=== PATIENT | female | born 1995 | race Caucasian/White ===

== ENCOUNTER → 2022-05-09 12:00 | Outpatient (CLI) | payer OTHER, SELFPAY ==
[2022-05-09 13:07] LABS: Basophils # 0.1 K/mm3 (0-0.2); Basophils % 0.9 % (0.1-2.0); Eosinophils # 0.2 K/mm3 (0.0-0.4); Eosinophils % 1.6 % (0.1-12.0); Hematocrit 41.9 % (37.0-47.0); Hemoglobin 13.7 g/dL (12.2-16.2); Lymphocytes # 2.4 K/mm3 (0.7-4.5); Lymphocytes % 22.9 % (10-50); Mean Corpuscular HGB Conc 32.8 g/dL (31.8-35.4); Mean Corpuscular Hemoglobin 28.6 pg (27.0-31.2); Mean Corpuscular Volume 87.4 fl (81-99); Mean Platelet Volume 9.1 fl (7.4-10.4); Monocytes # 0.6 K/mm3 (0.1-1.0); Monocytes % 5.9 % (1.7-9.3); Neutrophils # 7.1 K/mm3 (1.8-7.8); Neutrophils % 68.8 % (37.0-80.0); Platelet Count 291 K/mm3 (142-424); Red Cell Distribution Width 15.4 % (11.5-17.5); White Blood Count 10.4 K/mm3 (4.8-10.8)
[2022-05-09 15:48] LABS: Hemoglobin A1C 6.4 % (4.0-6.0)
[2022-05-09 19:00] LABS: Thyroid Stimulating Hormone 2.94 uIU/mL (0.465-4.68)
[2022-05-09 19:22] LABS: Hemoglobin A1C 6.5 % (4.0-6.0)
[2022-05-16 04:08] LABS: D001-IgE D pteronyssinus <0.10 kU/L (Class 0); D002-IgE D farinae <0.10 kU/L (Class 0); E001-IgE Cat Dander <0.10 kU/L (Class 0); E005-IgE Dog Dander <0.10 kU/L (Class 0); E072-IgE Mouse Urine <0.10 kU/L (Class 0); G002-IgE Bermuda Grass <0.10 kU/L (Class 0); G006-IgE Timothy Grass <0.10 kU/L (Class 0); I006-IgE Cockroach, German <0.10 kU/L (Class 0); Immunoglobulin E, Total 11 IU/mL (6-495); M001-IgE Penicillium chrysogen <0.10 kU/L (Class 0); M002-IgE Cladosporium herbarum <0.10 kU/L (Class 0); M003-IgE Aspergillus fumigatus <0.10 kU/L (Class 0); M006-IgE Alternaria alternata <0.10 kU/L (Class 0); T001-IgE Maple/Box Elder <0.10 kU/L (Class 0); T003-IgE Common Silver Birch <0.10 kU/L (Class 0); T006-IgE Cedar, Mountain <0.10 kU/L (Class 0); T007-IgE Oak, White <0.10 kU/L (Class 0); T008-IgE Elm, American <0.10 kU/L (Class 0); T010-IgE Walnut <0.10 kU/L (Class 0); T011-IgE Maple Leaf Sycamore <0.10 kU/L (Class 0); T014-IgE Cottonwood <0.10 kU/L (Class 0); T015-IgE Ash, White <0.10 kU/L (Class 0); T022-IgE Pecan, Hickory <0.10 kU/L (Class 0); T070-IgE White Mulberry <0.10 kU/L (Class 0); W001-IgE Ragweed, Short <0.10 kU/L (Class 0); W011-IgE Thistle, Russian <0.10 kU/L (Class 0); W014-IgE Pigweed, Common <0.10 kU/L (Class 0); W018-IgE Sheep Sorrel <0.10 kU/L (Class 0)
== END ==
PROVIDERS: PCP Family Medicine; Visit Provider Internal Medicine Pulmonary Disease
DX: J45.909 Unspecified asthma, uncomplicated (principal); J30.9 Allergic rhinitis, unspecified; R73.03 Prediabetes
CPT/HCPCS: 36415; 82785; 83036; 84443; 85025; 86003

== ENCOUNTER → 2022-07-08 08:12 | Outpatient (CLI) | payer OTHER, SELFPAY | PROVIDERS: PCP Family Medicine; Visit Provider Internal Medicine Pulmonary Disease | DX: R06.09 Other forms of dyspnea (principal) | CPT/HCPCS: 94060; 94727; 94729 ==

== ENCOUNTER → 2023-02-09 23:19 | Outpatient (CLI) | payer OTHER, SELFPAY ==
[2023-02-09 20:05] LABS: Chloride 99 mmol/L (98-107)
[2023-02-09 20:06] LABS: Potassium 4.2 mmoL/L (3.5-5.1); Sodium 138 mmol/L (136-145)
[2023-02-09 20:08] LABS: Alanine Aminotransferase 35 U/L (12-78); Alkaline Phosphatase 69 U/L (38-126); Anion Gap 12.2 mEq/L (5-15); Aspartate Amino Transferase 37 U/L (14-36); Bilirubin,Total 0.2 mg/dl (0.2-1.3); Blood Urea Nitrogen 11 mg/dl (7-17); Carbon Dioxide 31 mmol/L (22.0-30.0); Estimated Glomerular Filt Rate 149 ml/min (>60); GFR (African American) 180 ML/MIN (>60)
[2023-02-09 20:09] LABS: Albumin Level 3.9 g/dl (3.5-5.0); Albumin/Globulin Ratio 1.4 (1.1-1.8); Calcium 8.5 mg/dl (8.4-10.2); Globulin 2.7 g/dL (1.3-3.2); Glucose 223 mg/dl (74-100); Total Protein,Serum 6.6 g/dl (6.3-8.2)
[2023-02-09 20:39] LABS: Thyroid Stimulating Hormone 1.73 uIU/mL (0.465-4.68)
[2023-02-09 21:25] LABS: Vitamin B12 > 1000 pg/mL (239-931)
[2023-02-21 20:08] LABS: 1,25 Dihydroxy Vitamin D 33 pg/mL (.); 1,25-Dihydroxy, Vitamin D-2 <10 pg/mL (.); 1,25-Dihydroxy, Vitamin D-3 24 pg/mL (.)
== END ==
PROVIDERS: PCP Family Medicine; Visit Provider Family Medicine
DX: R68.89 Other general symptoms and signs (principal); E66.01 Morbid (severe) obesity due to excess calories; Z68.45 Body mass index [BMI] 70 or greater, adult; Z79.899 Other long term (current) drug therapy
CPT/HCPCS: 80053; 82607; 82652; 84443

== ENCOUNTER → 2023-03-03 14:24 | Outpatient (CLI) | payer OTHER, SELFPAY ==
[2023-03-03 16:55] VITALS: BMI 75.4
== END ==
PROVIDERS: PCP Family Medicine; Visit Provider Family Medicine
DX: Z71.3 Dietary counseling and surveillance (principal); E11.9 Type 2 diabetes mellitus without complications; E66.9 Obesity, unspecified; Z71.2 Person consulting for explanation of examination or test findings; Z68.45 Body mass index [BMI] 70 or greater, adult
CPT/HCPCS: 97802

== ENCOUNTER → 2023-05-13 11:00 | Outpatient (CLI) | payer OTHER, SELFPAY ==
[2023-05-13 21:26] LABS: Hemoglobin A1C 5.3 % (4.0-6.0)
== END ==
PROVIDERS: PCP Family Medicine; Visit Provider Family Medicine
DX: E11.9 Type 2 diabetes mellitus without complications (principal); Z79.899 Other long term (current) drug therapy
CPT/HCPCS: 83036

== ENCOUNTER 2024-02-15 16:16 | Outpatient (CLI) | payer OTHER, SELFPAY ==
--- NOTE | 2024-02-15 16:23 | XR_ITS ---
PROCEDURE INFORMATION: Exam: XR Chest Exam date and time: 02/15/2024 4:39 PM Age: 28 years old Clinical indication: Cough; Additional info: Soboe, cough, ble edema TECHNIQUE: Imaging protocol: Radiologic exam of the chest. Views: 2 views. COMPARISON: No relevant prior studies available. FINDINGS: Lungs: Normal. Pleural spaces: Normal. No pleural effusion. No pneumothorax. Heart/Mediastinum: Normal. No cardiomegaly. Bones/joints: Unremarkable. IMPRESSION: No acute findings.
[2024-02-15 17:18] LABS: Basophils # 0.1 K/mm3 (0-0.2); Basophils % 0.6 % (0.1-2.0); Eosinophils # 0.2 K/mm3 (0.0-0.4); Eosinophils % 1.9 % (0.1-12.0); Hematocrit 37.8 % (37.0-47.0); Hemoglobin 14.3 g/dL (12.2-16.2); Lymphocytes # 2.3 K/mm3 (0.7-4.5); Mean Corpuscular HGB Conc 37.8 g/dL (31.8-35.4); Mean Corpuscular Hemoglobin 34.3 pg (27.0-31.2); Mean Corpuscular Volume 90.5 fl (81-99); Mean Platelet Volume 8.6 fl (7.4-10.4); Monocytes # 0.5 K/mm3 (0.1-1.0); Monocytes % 5.7 % (1.7-9.3); Neutrophils # 6.4 K/mm3 (1.8-7.8); Neutrophils % 67.8 % (37.0-80.0); Platelet Count 208 K/mm3 (142-424); Red Blood Count 4.18 M/mm3 (4.20-5.40); Red Cell Distribution Width 15.5 % (11.5-17.5); White Blood Count 9.4 K/mm3 (4.8-10.8)
[2024-02-15 17:48] LABS: Hemoglobin A1C 6.5 % (4.0-6.0)
[2024-02-15 18:55] LABS: Alanine Aminotransferase 42 U/L (12-78); Albumin Level 4.1 g/dl (3.5-5.0); Albumin/Globulin Ratio 1.5 (1.1-1.8); Alkaline Phosphatase 61 U/L (38-126); Aspartate Amino Transferase 55 U/L (14-36); Bilirubin,Total 0.6 mg/dl (0.2-1.3); Blood Urea Nitrogen 10 mg/dl (7-17); Calcium 9.3 mg/dl (8.4-10.2); Carbon Dioxide 26 mmol/L (22.0-30.0); Chloride 103 mmol/L (98-107); Estimated Glomerular Filt Rate 148 ml/min (>60); GFR (African American) 179 ML/MIN (>60); Globulin 2.8 g/dL (1.3-3.2); Glucose 170 mg/dl (74-100); Sodium 140 mmol/L (136-145); Total Protein,Serum 6.9 g/dl (6.3-8.2)
[2024-02-15 18:56] LABS: Anion Gap 15.7 mEq/L (5-15); Potassium 4.7 mmoL/L (3.5-5.1)
[2024-02-15 19:05] LABS: NT Pro Brain Natriuretic Pep. < 20.0 pg/mL (0-125)
== END 2024-02-15 23:59 | disposition home or self-care (01) ==
LOC: LAB 16:18
PROVIDERS: PCP Family Medicine; Visit Provider Nurse Practitioner
DX: R06.02 Shortness of breath (principal); R60.0 Localized edema; R05.9 Cough, unspecified
CPT/HCPCS: 36415; 71046; 80053; 83036; 83880; 85025

== ENCOUNTER 2025-06-23 11:10 | Outpatient (CLI) | payer OTHER, SELFPAY ==
--- OUTSIDE RECORDS SUMMARY | 2025-06-16 09:10 | XMS_ITS | Encounter Summary ---
Author Organization [facility] [address] Care Team Providers Care Computer Methods Analyst Name Role Phone Titus Charles MD Primary Care Provider [phone] Romain Portillo MD Unavailable [phone] Reason for Referral * (Routine) - Pending Review Specialty Diagnoses / Procedures Referred By Ted nick Referred To Contact Diagnoses Hidradenitis Procedures BETA SURGERY COMMUNICATION ORDER Dayna Min MD [address] [place] [address] [address] [place] [address] Phone: tel: fax: Referral ID Status Reason Start Date Expiration Date V isits Requested Visits Authorized [id number] Pending Review 06/16/2025 06/16/2026 1 1 * Consultation (Routine) - Authorization Not Needed Specialty Diagnoses / Procedures Referred By Ted nick Referred To Contact Diagnoses Hidradenitis Procedures CO OFFICE/OUTPATIENT NEW MODERATE MDM 45 MINUTES Dayna Min MD [address] [place] [address] [address] [place] [address] Phone: tel: fax: Referral ID Status Reason Start Date Expiration Date Visits Requested Visits Authorized [id number] Authorization Not Needed 06/16/2026 99 99 Question Answer Provider Options First Available Are you an oncology provider? No Is this for a skin lesion or rash referral? Skin Lesion Referral Is melanoma suspected? No Has a biopsy been done? Yes Is there a photo? No If this is an URGENT referral and the patient needs to be seen within the next 4 weeks, please use the On-Call finder and send a message to the provider electronic equipment repairmen. Your message will be answered within 24 hours business hours. Please include a photo. Non Urgent Reason for Visit * Reason Comments Cyst cyst on back right s arvind of neck Encounter Details Date Type Department Care Team (Late st Contact Info) Description 06/16/2025 10:10 AM EDT Office Visit SEP Gen Surgery [facility] [address] [place] [address] Dayna Min MD [address] [place] [address] Hidradenitis (Primary Dx) Social History Tobacco Use Types Packs/Day Years Used Date Smoking Tobacco: Every Day Cigarettes Smokeless Tobacco: Never Tobacco Cessation:Ready to Q uit: Not Asked; Counseling Given: Not Answered Alcohol Use Standard Drinks/Week Comments Yes 0 (1 standard drink = 0.6 oz pur e alcohol) rare Sexually Active Control Partners Comments Yes Other-see comments Male vasectomy Comments No Sex and Gender Information Value Date Recorded Sex Assigned at Not on file Legal Sex Female 10:19 PM EDT Gender Identity Not on file Sexual Orientation Not on file Occupation Industry Job Start Date Job End Date stay at home Not on file Not on file Not on heather e documented as of this encounter Last Filed Vital Signs Vital Sign Reading Time Taken Comments Blood Pressure 126/66 06/16/2025 10:08 AM EDT Pulse 100 06/16/2025 10:08 AM EDT Temperature 36.8 C (98.3 F) 06/16/2025 10:08 AM EDT Respiratory Rate 18 06/16/2025 10:0 8 AM EDT Oxygen Saturation - - Inhaled Oxygen Concentration - - Weight 201.1 kg (443 lb 6.4 oz) 025 10:08 AM EDT Height 160 cm (5' 3 ) 06/16/2025 10:08 AM EDT Body Mass Index 78.54 06/16/2025 10:08 AM EDT documented in this encounter Progress Notes * Dayna Min MD - 06/16/2025 10:10 AM EDTAssociated Problem(s): Hidradenitis Orders: AMB REFERRAL TO DERMATOLOGY BETA SURGERY COMMUNICATION ORDER * Dayna Min MD - 06/16/2025 10:10 AM EDT Subjective: Patient ID: Karma Haas is a 30 y.o. female. Chief Complaint Patient presents with Cyst cyst on back right side of neck Comes in with a posterior neck cyst that has tunneled and come to he surface and drained This has happened recurrently I had previously excised the left side and this healed well Patients past medical, family and social histories were reviewed and updated. There were no changesexcept as noted. Past Medical History[1] Surgical History[2] Family History[3] Social History Socioeconomic History Marital status: Spouse name: Not on file Number of children: 0 Years of education: Not on file Highest education level: Not on file Occupational History Occupation: stay at home Tobacco Use Smoking status: Every Day Current packs/day: 0.25 Types: Cigarettes Smokeless tobacco: Never Vaping Use Vaping status: Never Used Substance and Sexual Activity Alcohol use: Yes Alcohol/week: 0.0 oz Comment: rare Drug use: No Sexual activity: Yes Partners: Male control/protection: Other-see comments Comment: vasectomy Other Topics Concern Not on file Social History Narrative Not on file Social Drivers of Health Financial Resource Strain: Not on file Food Insecurity: Not on file Transportation Needs: Not on file Physical Activity: Not on file Stress: Not on file Social Connections: Not on file Intimate Partner Violence: Not on file Housing Stability: Not on file Review of Systems Constitutional: Positive for fever. Negative for appetite change, chills, diaphoresis, fatigue and unexpected weight change. HENT: Negative for ear pain, hearing loss, nosebleeds, sore throat and voice change. Eyes: Negative for photophobia, pain and visual disturbance. Respiratory: Negative for cough, choking, chest tightness, shortness of breath and wheezing. Cardiovascular: Negative for chest pain, palpitations and leg swelling. Gastrointestinal: Negative for abdominal distention, abdominal pain, anal bleeding, blood in stool,constipation, diarrhea, nausea, rectal pain and vomiting. Genitourinary: Negative for difficulty urinating, dysuria, flank pain, frequency and vaginal discharge. Musculoskeletal: Positive for neck pain and neck stiffness. Negative for arthralgias, back pain, gait problem, joint swelling and myalgias. Skin: Positive for color change and wound. Negative for rash. Neurological: Negative for dizziness, seizures, speech difficulty, weakness, light-headedness, numbness and headaches. Hematological: Negative for adenopathy. Does not bruise/bleed easily. Psychiatric/Behavioral: Negative for confusion, decreased concentration and hallucinations. The patient is not nervous/anxious. Objective: Vitals: 06/16/25 1008 BP: 126/66 Pulse: 100 Resp: 18 Temp: 98.3 ??F (36.8 ??C) TempSrc: Forehead Weight: (!) 443 lb 6.4 oz (201.1 kg) Height: 5' 3 (1.6 m) Body mass index is 78.54 kg/m??. Physical Exam Vitals and nursing note reviewed. Constitutional: Appearance: Normal appearance. She is obese. HENT: Head: Normocephalic and atraumatic. Mouth/Throat: Mouth: Mucous membranes are moist. Pharynx: Oropharynx is clear. Eyes: Extraocular Movements: Extraocular movements intact. Pupils: Pupils are equal, round, and reactive to light. Cardiovascular: Rate and Rhythm: Normal rate. Pulses: Normal pulses. Pulmonary: Effort: Pulmonary effort is normal. No respiratory distress. Abdominal: General: There is no distension. Palpations: Abdomen is soft. Tenderness: There is no abdominal tenderness. Musculoskeletal: General: No swelling or tenderness. Cervical back: Normal range of motion and neck supple. Skin: General: Skin is warm and dry. Coloration: Skin is not jaundiced. Comments: Posterior neck hidradenitis due to deep skin fold this is on the right side of the neck. No active infection. Some thinning skin and tunneling noted Neurological: General: No focal deficit present. Mental Status: She is alert and oriented to person, place, and time. Psychiatric: Mood and Affect: Mood normal. Behavior: Behavior normal. Assessment & Plan Hidradenitis Orders: AMB REFERRAL TO DERMATOLOGY BETA SURGERY COMMUNICATION ORDER Recurrent HS of posterior neck I have offered excision Discussed that she needs some longer term maintenance so derm referral placed Discussed need for weight loss No follow-ups on file. [1] Past Medical History: Diagnosis Date Allergic rhinitis Anemia Anesthesia complication difficult to wake up, difficult intubation Angina pectoris Asthma CHF (congestive heart failure) ([facility]) 05/10/2024 current workup for CHF Chronic headache Collapsed lung Dx at [facility], pt unsure of which lung COPD (chronic obstructive pulmonary disease) ([facility]) Diabetes mellitus ([facility]) Difficult intubation Elevated blood sugar Esophageal reflux High cholesterol Hypoglycemic syndrome Ingrown toenail PCOS (polycystic ovarian syndrome) 2018 Shortness of breath Sleep apnea no cpap, uses O2 at night and prn Splenomegaly [2] Past Surgical History: Procedure Laterality Date DILATION AND CURETTAGE OF UTERUS hysteroscopy x2 2016, 2020 TONSILLECTOMY AND ADENOIDECTOMY 1999 UPPER GASTROINTESTINAL ENDOSCOPY 2009 WISDOM TOOTH EXTRACTION WRIST ARTHROSCOPY 2011 [3] Family History Problem Relation Age of Onset Breast Cancer Mother 46 Bilateral. Unsure of age. Anemia Mother Brain Cancer Mother 16 [employer] at age 16-remission Other (melanoma) Father after age 35 Asthma Father Asthma Sister Cancer Sister skin Heart Disease Maternal Grandmother 52 [place] Diabetes Maternal Grandmother Type II High Blood Pressure Maternal Grandmother Thyroid Disease Maternal Grandmother hypothyroid Sleep Apnea Maternal Grandmother Migraines Maternal Grandmother Uterine Cancer Paternal Grandmother 66 Asthma Paternal Grandmother Heart Abnormality Paternal Grandmother High Blood Pressure Paternal Grandmother Irritable Bowel Syndrome Paternal Grandmother Cancer Paternal Grandmother skin. Seizures Paternal Grandmother Migraines Paternal Grandmother Anesth Problems Neg Hx documented in this encounter Plan of Treatment Upcoming Encounters Date Type Department Care Team (Latest Contact Info) Description 06/27/2025 1:30 PM EST Appointment EDG PRE-ADMIT TESTING [facility] [place] [address] 07/06/2025 2:30 PM EST Hospital Encounter [facility] [address] [place] [address] Dayna Min MD [address] [facility] [address] [place] [address] 07/06/2025 2:30 PM EST - 07/06/2025 3:38 PM EST Surgery [facility] [address] [place] [address] Dayna Min MD [address] [place] [address] EXCISION, MASS, NECK Scheduled Procedures Name Priority Associated Diagnoses Date/Ti pa EXCISION, MASS, NECK Hidradenitis 07/06/2025 2:30 PM EST Scheduled Referrals Name Type Priority Associated Diagnoses Order Schedule AMB REFERRAL TO DERMATOLOGY Outpatient Referral Routine Hidradenitis Ordered: 06/16/2025 documented as of this encounter Visit Diagnoses Diagnosis Hidradenitis- Primary Hidradenitis- Primary Hidradenitis documented in this encounter Orders Nursing Count Last Ordered Date First Orde red Date BETA SURGERY COMMUNICATION ORDER 1 06/16/20 25 documented in this encounter Care Teams Computer Methods Analyst Relationship Specialty Start Date End Date Titus Charles MD PCP - General Family Medicine 11/14/14 Romain Portillo MD [address] [facility] [place] [address] Internal Medicine-Cardiovascular Disease 07/15/24 documented as of this encounter
[2025-06-23 19:40] LABS: Hematocrit 42.3 % (37.0-47.0); Hemoglobin 13.5 g/dL (12.2-16.2); Immature Granulocytes % 0.3 %; Mean Corpuscular HGB Conc 31.9 g/dL (31.8-35.4); Mean Corpuscular Hemoglobin 28.7 pg (27.0-31.2); Mean Corpuscular Volume 89.8 fl (81-99); Nucleated Red Blood Cells % 0 %; Platelet Count 226 K/mm3 (142-424); Red Blood Count 4.71 M/mm3 (4.20-5.40); Red Cell Distribution Width-SD 48.2 fL; White Blood Count 8.9 K/mm3 (4.8-10.8)
[2025-06-23 20:03] LABS: Alanine Aminotransferase 72 U/L (12-78); Albumin Level 4.1 g/dl (3.5-5.0); Albumin/Globulin Ratio 1.4 (1.1-1.8); Alkaline Phosphatase 87 U/L (38-126); Anion Gap 9.3 mEq/L (5-15); Aspartate Amino Transferase 49 U/L (14-36); Bilirubin,Total 0.5 mg/dl (0.2-1.3); Blood Urea Nitrogen 8 mg/dl (7-17); Calcium 9.3 mg/dl (8.4-10.2); Carbon Dioxide 28 mmol/L (22.0-30.0); Chloride 102 mmol/L (98-107); Cholesterol 174 mg/dl (140-200); Creatinine,Serum 0.60 mg/dl (0.52-1.04); Estimated Glomerular Filt Rate 118 ml/min (>60); GFR (African American) 143 ML/MIN (>60); Globulin 3.0 g/dL (1.3-3.2); Glucose 251 mg/dl (74-100); HDL Cholesterol 30 mg/dl (40-60); Iron 72 ug/dL (37-170); Potassium 4.3 mmoL/L (3.5-5.1); Sodium 135 mmol/L (136-145); Total Protein,Serum 7.1 g/dl (6.3-8.2); Triglycerides 308 mg/dl (30-150)
[2025-06-23 20:34] LABS: Thyroid Stimulating Hormone 0.98 uIU/mL (0.465-4.68)
[2025-06-23 22:03] LABS: Hepatitis C Ab Qual. W/ RFX NEGATIVE (Negative)
--- OUTSIDE RECORDS SUMMARY | 2025-06-26 11:24 | XMS_ITS | Encounter Summary ---
Author Organization [facility] [place] [address] Care Team Providers Care Eyeglass Maker Name Role Phone Titus Charles MD Primary Care Provider [phone] Romain Portillo MD Unavailable [phone] Reason for Visit * Reason Onset Date Comments Other 06/19/2025 FYI Encounter Details Date Type Department Care Team (Late st Contact Info) Description 06/19/2025 Telephone SEP Gen Surg [facility] [address] [facility] [address] [place] [address] Luann Woody MA Other (FYI) Social History Tobacco Use Types Packs/Day Years Used Date Smoking Tobacco: Every Day Cigarettes Smokeless Tobacco: Never Alcohol Use Standard Drinks/Week Comments Yes 0 [...] heather e documented as of this encounter Miscellaneous Notes * Telephone Encounter - Anabela Barrios, Clerical Staff - 06/20/2025 3:26 PM EST I called and left a VM that Dr. Min will look at the day of surgery. * Telephone Encounter - Dayna Min MD - 06/20/2025 3:16 PM EST I can look at it and assess the day of surgery * Telephone Encounter - Anabela Barrios, Clerical Staff - 06/20/2025 10:38 AM EST Pt is asking about if you will be able to remove the cyst that came back * Telephone Encounter - Luann Woody MA - 06/19/2025 2:57 PM EST Pt called stating that a cyst came back on the left side of her neck, right above the previous cystthat has been removed. Pt states that it did bust and drain a little bit, but has not gone down in size. documented in this encounter Plan of Treatment Upcoming Encounters Date Type Department Care Team (Latest Contact Info) Description 06/27/2025 1:30 PM EST Appointment EDG PRE-ADMIT TESTING [facility] [place] [address] 07/06/2025 2:30 PM EST Hospital Encounter [facility] [address] [place] [address] Dayna Min MD [address] [place] [address] [address] [place] [address] 07/06/2025 2:30 PM EST - 07/06/2025 3:38 PM EST Surgery [facility] [address] [place] [id number] Dayna Min MD [address] [place] [address] [address] [place] [address] EXCISION, MASS, NECK Scheduled Procedures Name Priority Associated Diagnoses Date/Ti me EXCISION, MASS, NECK Hidradenitis 07/06/2025 2:30 PM EST documented as of this encounter Visit Diagnoses Not on filedocumented in this encounter Care Teams Eyeglass Maker Relationship Specialty Start Date End Date Titus Charles MD PCP - General Family Medicine 11/14/14 Romain Portillo MD [address] [place] [address] Internal Medicine-Cardiovascular Disease 07/15/24 documented as of this encounter
--- OUTSIDE RECORDS SUMMARY | 2025-06-26 11:24 | XMS_ITS | Data Portability ---
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 Not Available prednison e 20 mg tablet 02/23 completed Not Available Not Available Not Available medroxypr ogesteron e 5 mg tablet 02/23 completed Not Available Not Available Not Available rizatript an 10 mg tablet 02/23 completed Not Available Not Available Not Available sertralin e 100 mg tablet TAKE 2 TABLETS BY MOUTH ONCE DAILY 04/21 completed Not Available Not Available Not Available metformin 850 mg tablet 03/08 completed Not Available Not Available Not Available acetazola mide 250 mg tablet 04/21 completed Not Available Not Available Not Available clindamyc in HCl 150 mg capsule 02/23 completed Not Available Not Available Not Available Flonase 50 mcg/actua tion nasal spray,william pension inhale 1 spray (50 mcg) in each nostril by intranas al route once daily for 7 days 11/21 completed Flonase 50 mcg/actu ation nasal spray,beasley spension ;Prescri be Status: Prescrib ed on: 03/04/20 13 11:16AM; Disconti nued Status: Disconti nued on: 11/22/19 16 4:38PM;U ser: stroopr; Indicati on: Allergic Rhinitis - (.[id number]);Phar macyVeri fied: 03/04/20 13 11:16AM Not Available Not Available Not Available topiramat e 25 mg tablet TAKE 1 TABLET BY MOUTH TWICE DAILY active Not Available Not Available No t Available fexofenad ine 180 mg tablet TAKE 1 TABLET BY MOUTH EVERY 24 HOURS 04/21 completed Not Available Not Available Not Available prochlorp erazine maleate 10 mg tablet TAKE 1 TABLET BY MOUTH EVERY 8 HOURS NEEDED 12/13 completed Not Available Not Available Not Available ciproflox acin 500 mg tablet TAKE 1 TABLET BY MOUTH TWICE DAILY FOR 3 DAYS 03/17 completed Not Available Not Available Not Available sulfameth oxazole 800 mg-trimet hoprim 160 mg tablet TAKE 1 TABLET BY MOUTH TWICE DAILY FOR 7 DAYS active Not Available Not Available No t Available tramadol 50 mg tablet TAKE 1 TABLET BY MOUTH EVERY 6 HOURS NEEDED FOR PAIN active Not Available Not Available No t Available spironola ctone 25 mg tablet active Not Available Not Available No t Available ketorolac 10 mg tablet TAKE 1 TABLET BY MOUTH THREE TIMES DAILY NEEDED FOR PAIN active Not Available Not Available No t Available oxycodone -acetamin ophen 5 mg-325 mg tablet TAKE 1 TABLET BY MOUTH EVERY 4 TO 6 HOURS NEEDED FOR PAIN 08/03 completed Not Available Not Available Not Available potassium chloride ER 20 mEq tablet,ex tended release(p art/cryst ) TAKE 1 BY MOUTH ONCE DAILY 04/21 completed Not Available Not Available Not Available famotidin e 20 mg tablet Take 1 tablet as needed by oral route. 04/21 completed Not Available Not Available Not Available estradiol 1 mg tablet 02/23 completed Not Available Not Available Not Available amoxicill in 250 mg/5 mL oral suspensio n take 10 millilit ers (500 mg) by oral route every 12 hours for 10 days 04/17 completed amoxicil antonia 250 mg/5 mL oral suspensi on for reconsti tution;R ecorded Status: Recorded on: 06/14/20 09 3:35PM;D iscontin ued Status: Disconti nued on: 04/17/20 10 3:19PM;U ser: keefk;Es t. Completi on: 06/24/20 09;Print ed: 06/14/20 09 Not Available Not Available Not Available OneTouch Ultra Test strips active Not Available Not Available Not Available benzonata te 100 mg capsule take 1 capsule (100 mg) by oral route 3 times per day 09/30 completed Not Available Not Available Not Available cyanocoba nikki (vit B-12) 1,000 mcg/mL injection solution INJECT 1 ML (CC) INTRAMUS CULARLY EVERY TWO WEEKS active Not Available Not Available No t Available Claritin 5 mg/5 mL oral solution 1 prn 10/04 completed Claritin 5 mg/5 mL oral solution ;Recorde d Status: Recorded on: 05/20/20 08 10:04PM; Disconti nued Status: Disconti nued on: 10/04/19 09 12:33PM; User: angie Not Available Not Available Not Available oseltamiv ir 75 mg capsule 03/08 completed Not Available Not Available Not Available ropinirol e 0.5 mg tablet Take 1 tablet every day by oral route at bedtime. 04/21 completed Not Available Not Available Not Available nystatin 100,000 unit/gram topical cream 04/21 completed Not Available Not Available Not Available ranitidin e 150 mg tablet TAKE ONE TABLET BY MOUTH TWICE DAILY for 30 days 02/23 completed Not Available Not Available Not Available halobetas ol propionat e 0.05 % topical ointment Apply to affected area on lower back BID -TID 02/23 completed Not Available Not Available Not Available promethaz ine 25 mg tablet TAKE 1 TABLET BY MOUTH THREE TIMES DAILY NEEDED FOR NAUSEA AND VOMITING 04/21 completed Not Available Not Available Not Available Syringe 3cc 22 gauge x 3/4 use twice monthly with b12 injectio ns 09/23 completed Syringe 3cc/22Gx 3/4 3 mL 22 gauge x 3/4 miscella neous syringe; Recorded Status: Recorded on: 12/28/19 14 12:22PM; User: [email or web address];Estefany t. Completi on: 09/23/19 15;Indic ation: Vitamin B12 Deficien cy - (266.9); Printed: 02/04/20 14 Not Available Not Available Not Available Advair Diskus 250 mcg-50 mcg/dose powder for inhalatio n 03/08 completed Not Available Not Available Not Available BD Luer-Frandy Syringe 3 mL 25 gauge x 1 02/23 completed Not Available Not Available Not Available diclofena c potassium 50 mg tablet Take 1 tablet twice a day by oral route. 11/17 completed Not Available Not Available Not Available Selsun Blue 1 % shampoo use as directed daily 09/23 completed Replaced /Retired Drug 1 % topical shampoo; Recorded Status: Recorded on: 10/26/19 09 4:56PM;D iscontin ued Status: Disconti nued on: 09/23/19 11 2:15PM;U ser: gillisa; Printed: 10/26/19 09 Not Available Not Available Not Available omeprazol e 20 mg capsule,d elayed release take 1 capsule by oral route once 07/16 completed omeprazo le 20 mg oral capsule, delayed release( /EC);R ecorded Status: Recorded on: 02/18/20 12 11:14AM; Disconti nued Status: Disconti nued on: 07/16/20 12 11:17AM; User: [email or web address]; Est. Completi on: 06/17/20 12 Not Available Not Available Not Available diclofena c sodium 75 mg tablet,de layed release Take 1 tablet twice a day by oral route. 09/30 completed Not Available Not Available Not Available monteluka st 10 mg tablet 02/23 completed Not Available Not Available Not Available hydroxyzi ne HCl 25 mg tablet TAKE 1/2 (ONE-SYLVIE F) TABLET BY MOUTH ONCE DAILY NEEDED FOR ANXIETY AND THEN TAKE 1 TABLET AT NIGHT FOR SLEEP NEEDED active Not Available Not Available No t Available ranitidin e 150 mg capsule 03/08 completed Not Available Not Available Not Available amoxicill in 400 mg/5 mL oral suspensio n take 13 millilit ers by oral route 2 times a day for 10 days 10/04 completed amoxicil antonia 400 mg/5 mL oral suspensi on for reconsti tution;R ecorded Status: Recorded on: 07/14/20 08 4:39PM;D iscontin ued Status: Disconti nued on: 10/04/19 09 12:33PM; User: Nicki delarosa Completsuly on: 07/24/20 08;Indic ation: Acute Bacteria l Sinusiti s - (4619 );Prin geo: 07/14/20 08 Not Available Not Available Not Available furosemid e 20 mg tablet TAKE 1/2 (ONE-SYLVIE F) TABLET BY MOUTH EVERY 12 HOURS FOR 3 DAYS 12/19 completed Not Available Not Available Not Available alprazola m 2 mg tablet 09/23 completed Not Available Not Available Not Available gabapenti n 100 mg capsule Take 1 capsule every day by oral route at bedtime. 01/09 completed Not Available Not Available Not Available albuterol 90 mcg/actua tion aerosol inhaler Take as Directed 10/04 completed albutero l 90 mcg/actu ation inhalati on aerosol; Recorded Status: Recorded on: 05/20/20 08 10:03PM; Disconti nued Status: Disconti nued on: 10/04/19 09 12:33PM; User: anthony Not Available Not Available Not Available ergocalci ferol (vitamin D2) 1,250 mcg (50,000 unit) capsule TAKE 1 CAPSULE BY MOUTH ONCE A WEEK 04/21 completed Not Available Not Available Not Available Prometheg an 25 mg rectal supposito ry 12/19 completed Not Available Not Available Not Available epinephri ne 0.3 mg/0.3 mL injection , auto-inje ctor 04/21 completed Not Available Not Available Not Available Ativan 0.5 mg tablet Take 1 tablet every day by oral route as needed. 04/21 completed Not Available Not Available Not Available methylpre dnisolone 4 mg tablets in a dose pack 02/23 completed Not Available Not Available Not Available albuterol sulfate HFA 90 mcg/actua tion aerosol inhaler INHALE 2 PUFFS BY MOUTH EVERY 6 HOURS NEEDED FOR SHORTNES S OF BREATH AND FOR WHEEZING active Not Available Not Available No t Available ketoconaz ole 2 % topical cream APPLY TO THE AFFECTED AREA(S) between breasts BY TOPICAL ROUTE 2-3 DAILY 02/23 completed Not Available Not Available Not Available hydroxyzi ne HCl 10 mg tablet 03/08 completed Not Available Not Available Not Available cefdinir 300 mg capsule TAKE 1 CAPSULE BY MOUTH TWICE DAILY FOR 10 DAYS UNTIL GONE 04/29 completed Not Available Not Available Not Available topiramat e 100 mg tablet 02/23 completed Not Available Not Available Not Available sertralin e 50 mg tablet 12/13 completed Not Available Not Available Not Available medroxypr ogesteron e 150 mg/mL intramusc ular suspensio n Inject 1 mL every 12 weeks 03/08 completed Not Available Not Available Not Available dicyclomi ne 10 mg capsule 02/23 completed Not Available Not Available Not Available Hibiclens 4 % topical liquid wash with liquid once daily 02/23 completed Not Available Not Available Not Available Augmentin 500 mg-125 mg tablet take 1 tablet by oral route every 12 hours for 10 days 08/27 completed Augmenti n 500-125 mg oral tablet;R ecorded Status: Recorded on: 07/03/20 10 4:29PM;D iscontin ued Status: Disconti nued on: 08/27/19 11 9:57AM;U ser: gillisa; Est. Completi on: 07/13/20 10;Indic ation: Acute Bacteria l Sinusiti s - ();Prin geo: 07/03/20 10 Not Available Not Available Not Available ipratropi um bromide 21 mcg (0.03 %) nasal spray 02/23 completed Not Available Not Available Not Available loratadin e 10 mg tablet take 1 tablet (10 mg) by oral route once daily for 30 days 03/08 completed Not Available Not Available Not Available clindamyc in phosphate 1 % topical solution APPLY A THIN LAYER TO THE AFFECTED AREA(S) BY TOPICAL ROUTE 2 TIMES PER DAY 02/23 completed Not Available Not Available Not Available oxycodone 5 mg tablet TAKE 1 TO 2 TABLETS BY MOUTH THREE TIMES DAILY NEEDED FOR PAIN 08/03 completed Not Available Not Available Not Available hydroxyzi ne pamoate 25 mg capsule TAKE 1 CAPSULE BY MOUTH AT NIGHT NEEDED FOR SLEEP 04/21 completed Not Available Not Available Not Available cholecalc iferol (vitamin D3) 25 mcg (1,000 unit) capsule TAKE 1 CAPSULE BY MOUTH ONCE DAILY active Not Available Not Available No t Available Depo-Prov era 150 mg/mL intramusc ular syringe Inject 1 mL every 3 months by intramus cular route. 09/30 completed Not Available Not Available Not Available Mucinex 600 mg tablet, extended release take 1 - 2 tablets by oral route every 12 hours as needed for 10 days 09/30 completed Mucinex 600 mg oral tablet extended release 12hr;Rec orded Status: Recorded on: 11/08/19 11 5:40PM;D iscontin ued Status: Disconti nued on: 09/30/19 12 5:00PM;U ser: [email or web address];Es t. Completi on: 11/18/19 11;Indic ation: Cough - (16.7862 00) Not Available Not Available Not Available azithromy ramírez 500 mg tablet TAKE 1 TABLET BY MOUTH ONCE DAILY FOR 3 DAYS active Not Available Not Available No t Available guaifenes in 400 mg tablet take 2 tablets by oral route 3 times a day for 7 days 09/23 completed guaifene sin 400 mg oral tablet;R ecorded Status: Recorded on: 08/27/19 11 10:13AM; Disconti nued Status: Disconti nued on: 09/23/19 11 2:15PM;U ser: keefk;Es t. Completi on: 09/03/19 11;Indic ation: Cough - (16.7862 00);Prin geo: 08/27/19 11 Not Available Not Available Not Available Pain Reliever (acetamin ophen) 500 mg tablet 02/23 completed Not Available Not Available Not Available topiramat e 50 mg tablet 02/23 completed Not Available Not Available Not Available nitrofura ntoin monohydra te/macroc rystals 100 mg capsule Take 1 capsule twice a day by oral route for 7 days. 03/08 completed Not Available Not Available Not Available OneTouch UltraSoft Lancets active Not Available Not Available Not Available FIRST-Saba thwash BLM 200 mg-25 mg-400 mg-40mg/3 0mL 50cc/170 cc/200cc tid prn swish and spit 11/23 completed magic mouth wash lidocain e/benadr yl/nysta tin;Dino rded Status: Recorded on: 11/14/19 16 12:52PM; User: anthony;Estefany nick. Completi on: 11/24/19 16;Indic ation: ulcers - (-5) Not Available Not Available Not Available Flovent HFA 110 mcg/actua tion aerosol inhaler inhale 1 puff (110 mcg) by inhalati on route 2 times per day for 30 days 09/30 completed Flovent HFA 110 mcg/actu ation inhalati on HFA aerosol inhaler; Recorded Status: Recorded on: 11/08/19 11 5:40PM;D iscontin ued Status: Disconti nued on: 09/30/19 12 5:00PM;U ser: [email or web address];Es t. Completi on: 02/06/20 11;Indic ation: Asthma Preventi on - (08.4939 05) Not Available Not Available Not Available Mimyx topical cream apply to affected area(s) by topical route 3 times a day 05/23 completed Mimyx Topical Cream;Re corded Status: Recorded on: 10/04/19 09 12:21PM; Disconti nued Status: Disconti nued on: 05/23/20 09 10:27AM; User: [email or web address];Pr inted: 10/04/19 09 Not Available Not Available Not Available chlorhexi dine gluconate 0.12 % mouthwash SWISH AND SPIT 15ML BY MOUTH TWICE DAILY DIRECTED 08/03 completed Not Available Not Available Not Available Amoxil one tid 12/20 completed amoxil 500 mg.;Dino rded Status: Recorded on: 10/04/19 13 11:11AM; Disconti nued Status: Disconti nued on: 12/21/19 13 5:03PM;U ser: mirza Est. Completi on: 10/14/19 13;Indic ation: phjar - (-5) Not Available Not Available Not Available omeprazol e 2 po bid 06/10 completed omeperaz ole 20 mg;comme nt: pt dose adjusted ;Recorde d Status: Recorded on: 04/01/20 10 12:02PM; Disconti nued Status: Disconti nued on: 06/10/20 10 9:47AM;U ser: lisa Est. Completi on: 05/31/20 10;Indic ation: gerd - (-5) Not Available Not Available Not Available Atarax one tid 07/16 completed atarax 25 mg.;Dino rded Status: Recorded on: 06/06/20 12 9:11PM;D iscontin ued Status: Disconti nued on: 07/16/20 12 11:17AM; User: mirza EstJessica Singh on: 06/16/20 12;Indic ation: panic - (-5) Not Available Not Available Not Available prednison e increasi ng/decre asing dosage schedule 02/16 completed predison e 5 mg.;Dino rded Status: Recorded on: 10/24/19 12 7:43AM;D iscontin ued Status: Disconti nued on: 02/17/20 12 8:58AM;U ser: [email or web address]; Est. Completi on: 10/30/19 12;Indic ation: asthma - (-5) Not Available Not Available Not Available Keflex 1 bid 05/23 completed keflex 500mg;Re corded Status: Recorded on: 05/02/20 09 1:40PM;D iscontin ued Status: Disconti nued on: 05/23/20 09 10:27AM; User: [email or web address] ryh;Est. Completi on: 05/16/20 09;Indic ation: - (-5);Ofelia nted: 05/02/20 09 Not Available Not Available Not Available Flovent HFA as needed 09/23 completed Flovent HFA Inhalati on;Recor ded Status: Recorded on: 08/27/19 11 9:57AM;D iscontin ued Status: Disconti nued on: 09/23/19 11 2:15PM;U ser: [email or web address] Not Available Not Available Not Available aripipraz ole 2 mg tablet TAKE 1 TABLET BY MOUTH ONCE DAILY IN THE MORNING 04/21 completed Not Available Not Available Not Available hydrochlo rothiazid e 12.5 mg tablet take 1 tablet (12.5 mg) by oral route once daily for 30 days 11/21 completed hydrochl orothiaz arvind 12.5 mg oral tablet;P rescribe Status: Prescrib ed on: 06/12/20 14 3:47PM;D iscontin ued Status: Disconti nued on: 11/22/19 16 4:38PM;U ser: neuss;Es t. Completi on: 12/10/19 15;Pharm acyVerif ied: 06/12/20 14 3:47PM Not Available Not Available Not Available Symbicort 80 mcg-4.5 mcg/actua tion HFA aerosol inhaler 12/13 completed Not Available Not Available Not Available FeroSul 325 mg (65 mg iron) tablet TAKE 1 TABLET BY MOUTH TWICE DAILY active Not Available Not Available No t Available Xyzal 5 mg tablet take 1 tablet (5 mg) by oral route once daily in the evening for 10 days 12/20 completed Xyzal 5 mg oral tablet;R ecorded Status: Recorded on: 10/01/19 13 2:38PM;D iscontin ued Status: Disconti nued on: 12/21/19 13 5:03PM;U ser: [email or web address]; Est. Completi on: 10/11/19 13;Print ed: 10/01/19 13 Not Available Not Available Not Available Xyzal one ddaily 12/20 completed xyzal 5 mg.;Dino rded Status: Recorded on: 10/04/19 13 11:11AM; Disconti nued Status: Disconti nued on: 12/21/19 13 5:03PM;U ser: [email or web address]; Est. Completi on: 10/14/19 13;Indic ation: allergy - (-5) Not Available Not Available Not Available BD Allergy Syringe 1 mL 28 gauge 02/23 completed Not Available Not Available Not Available Vitamin D 2,000 unit capsule take 1 capsule by oral route daily 03/02 completed Replaced /Retired Drug 2,000 unit oral capsule; Recorded Status: Recorded on: 02/24/20 12 8:55AM;D iscontin ued Status: Disconti nued on: 03/02/20 13 1:51PM;U ser: neuss;In dication : Vitamin D Deficien cy - (2689 ) Not Available Not Available Not Available Aerochamb er Plus Flow-Vu 12/13 completed Not Available Not Available Not Available cyanocoba nikki (vit B-12) 1,000 mcg/mL injection kit Inject 1 mL every month by subcutan eous route. 04/21 completed pt gives her own injectio n Not Available Not Available Not Available potassium chloride ER 20 mEq tablet,ex tended release TAKE 1 TABLET BY MOUTH ONCE DAILY active Not Available Not Available No t Available Jardiance 25 mg tablet TAKE 1 TABLET BY MOUTH ONCE DAILY active Not Available Not Available No t Available Arnuity Ellipta 100 mcg/actua tion powder for inhalatio n 02/23 completed Not Available Not Available Not Available Folinic-P jorge 4 mg-50 mg-2 mg tablet Take 1 tablet every day by oral route. 02/23 completed Not Available Not Available Not Available OneTouch Ultra2 Meter USE TO TEST BLOOD SUGAR FOUR TIMES A DAY active Not Available Not Available No t Available OneTouch Delica Plus Lancet 30 gauge USE TO TEST BLOOD SUGAR FOUR TIMES A DAY active Not Available Not Available No t Available Trelegy Ellipta 200 mcg-62.5 mcg-25 mcg powder for inhalatio n INHALE 1 PUFF DIRECTED ONCE A DAY. RINSE OUT MOUTH AFTER USE active Not Available Not Available No t Available Ozempic 0.25 mg or 0.5 mg (2 mg/3 mL) subcutane ous pen injector INJECT 0.25 MG SUBCUTAN EOUSLY EVERY WEEK FOR 4 WEEKS active Not Available Not Available No t Available Vitals Date Recorded Body height Body mass index (BMI) Body weight Pain severity - 0-10 verbal numeric rating [Score] - Reported Systolic And Diastolic Provider Name and Address Organization Details Last Updated DateTime 02/16/2023 160.02 cm 75.8 kg/m2 887120.5 3 g 0 130/86 mm[Hg] Purnima Loza [place] - [facility] 3 13:45:26 Date Recorded Body mass index (BMI) Body height Provider Name and Address Organization Details Last Updated DateTime 03/04/2024 76 kg/m2 160.02 cm Mihaela Leal, C[employer] SPECIALIST [address], [place], [address], [place] - [facility] 03/04/2024 10:56:46 Date Recorded Body weight Systolic And Diastolic Provider Name and Address Organization Details Last Updated DateTime 03/04/2024 724750.13 g 122/78 mm[Hg] Rubin Pennington [place] - [facility] 03/04/2024 10:12:50 Date Recorded Body height Body mass index (BMI) Body weight Pain severity - 0-10 verbal numeric rating [Score] - Reported Systolic And Diastolic Provider Name and Address Organization Details Last Updated DateTime 03/17/2022 160.02 cm 71 kg/m2 436570.5 4 g 0 140/98 mm[Hg] Purnima Loza [place] - [facility] 16:02:47 Date Recorded Body height Body mass index (BMI) Body weight Systolic And Diastolic Provider Name and Address Organization Details Last Updated DateTime 04/21/2024 160.02 cm 73.3 kg/m2 794785.24 g 124/80 mm[Hg] Nidia Cadena [place] - [facility] 04/21/2024 13:50:32 Date Recorded Body height Body mass index (BMI) Body weight Pain severity - 0-10 verbal numeric rating [Score] - Reported Systolic And Diastolic Provider Name and Address Organization Details Last Updated DateTime 04/29/2022 160.02 cm 73.5 kg/m2 762578.8 3 g 0 144/98 mm[Hg] Purnima Loza [place] - [facility] 15:13:15 Social History Question Answer Notes LastModified by Organization Details LastModified Time Tobacco Smoking Status Current Every Day Smoker as needed for anxiety attack [facility] [place] - [facility] 02/24/2020 14:18:05 Able To Swim? Yes [email or web address] Informati on not available 02/26/2017 Do You Have An Advance Directive? No Information not available 07/09/2016 Do You Wear A Helmet When Biking? No [email or web address] Information not available 02/26/2017 Are You Blind Or Do You Have Difficulty Seeing? No Information not available 07/09/2016 Is Blood Transfusion Acceptable In An Emergency? Yes Information not available 07/09/2016 What Is Your Level Of Caffeine Consumption? Occasional Information not available 07/09/2016 How Much Tobacco Do You Chew? None Information not available 07/09/2016 In The 14 Days Before Symptom Onset, Have You Had Close Contact With A Laboratory-confi rmed COVID-19 While That Case Was Ill? No Information not available 04/21/2024 In The 14 Days Before Symptom Onset, Have You Had Close Contact With A Person Who Is Under Investigation For COVID-19 While That Person Was Ill? No [email or web address] Information not available 04/21/2024 Have You Been To An Area Known To Be High Risk For COVID-19? No Information not available 04/21/2024 Are You Deaf Or Do You Have Serious Difficulty Hearing? No Information not available 07/09/2016 What Type Of Diet Are You Following? REGULAR Information not available 07/09/2016 Which Illicit Or Recreational Drugs Have You Used? Never [email or web address] Information not available 06/09/2016 Have You Processed Blood Or Body Fluids From An Ebola Virus Disease Patient Without Appropriate PPE? No [email or web address] Information not available 04/21/2024 Do You Reside In Or Have You Traveled To An Area Where Ebola Virus Transmission Is Active? No [email or web address] Information not available 04/21/2024 What Is The Highest Grade Or Level Of School You Have Completed Or The Highest Degree You Have Received? [id number] [email or web address] Information not available 04/21/2024 Swimming/diving Yes [email or web address] Informa tion not available 02/26/2017 Have There Been Any Changes To Your Family Or Social Situation? No [email or web address] Information not available 12/13/2021 What Is The Fluoride Status Of Your Home? Fluoridated [email or web address] Information not available 04/21/2024 Hard Of Hearing Or Deaf In One Or Both Ears? No [email or web address] Information not available 06/09/2016 Have You Recently Or Are You Planning To Travel To An Area With Zika Virus? No [email or web address] Information not available 04/21/2024 Legally Blind In One Or Both Eyes? No [email or web address] Information not available 06/09/2016 Live Alone Or With Others? With Others Information not available 07/09/2016 Do You Have A Medical Power Of Machine Room Operator? No [email or web address] Information not available 04/21/2024 What Was The Date Of Your Most Recent Tobacco Screening? 03/04/2024 [email or web address] Information not available 03/03/2024 How Many Children Do You Have? 0 Information not available 07/09/2016 What Is Your Current Pack Years? 10packyears [email or web address] Information not available 04/21/2024 Performs Monthly Self-breast Exam? Yes Information not available 07/09/2016 Do You Use Protection During Sex? Always [email or web address] Information not available 04/21/2024 Do You Use Protection Against STDs? No [email or web address] Information not available 04/21/2024 What Is Your Relationship Status? [email or web address] Information not available 06/09/2016 Seat Belts Used Routinely Yes Information not available 07/09/2016 Are You Sexually Active? Yes Information not available 07/09/2016 Do You Have Smoke And Carbon Monoxide Detectors In Your Home? Yes [email or web address] Information not available 12/13/2021 At What Age Did You Start Smoking Tobacco? 24 Information not available 12/19/2021 Are You Passively Exposed To Smoke? Yes [email or web address] Information not available 12/13/2021 How Much Tobacco Do You Smoke? 0.5 PPD Information not available 12/19/2021 General Stress Level High Information not available 07/09/2016 Do You Use Sunscreen Routinely? No Information not available 07/09/2016 Has Tobacco Cessation Counseling Been Provided? Yes Notes Smokes More For Anxiety Than Pleasure [email or web address] Information not available 12/27/2021 On What Date Was Tobacco Cessation Counseling Provided? 03/04/2024 Information not available 03/03/2024 How Many Years Have You Smoked Tobacco? 5 [email or web address] Information not available 04/21/2024 Do You Have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
--- OUTSIDE RECORDS SUMMARY | 2025-06-26 11:24 | XMS_ITS | Encounter Summary ---
Author Organization [place] [address] Care Team Providers Care Boarder Machine Name Role Phone Titus Charles MD Primary Care Provider [phone] Romain Portillo MD Unavailable [phone] Encounter Details Date Type Department Care Team (Late st Contact Info) Description 02/11/2018 Lab Requisition [facility] [place] [address] Yoly Royal MD [address] [facility] [address] [place] [address] Lower abdominal pain Social History Tobacco Use Types Packs/Day Years Used Date Smoking Tobacco: Never Smokeless Tobacco: Never Alcohol Use Standard Drinks/Week Comments No 0 (1 standard drink = 0.6 oz pur e alcohol) Sexually Active Control Partners Comments Yes Other-see comments Male vasectomy Comments No Sex and Gender Information Value Date Recorded Sex Assigned at Not on file Legal Sex Female 10:19 PM EDT Gender Identity Not on file Sexual Orientation Not on file documented as of this encounter Plan of Treatment Upcoming Encounters Date Type Department Care Team (Latest Contact Info) Description 06/27/2025 1:30 PM EST Appointment [facility] PRE-ADMIT TESTING [facility] [place] [address] 07/06/2025 2:30 PM EST Hospital Encounter [facility] [address] [place] [address] Dayna Min MD [address] [place] [address] [address] [facility] [place] [id number] 07/06/2025 2:30 PM EST - 07/06/2025 3:38 PM EST Surgery [facility] [address] [place] [address] Dayna Min MD [address] [facility] [address] [place], [place] [id number] EXCISION, MASS, NECK Scheduled Procedures Name Priority Associated Diagnoses Date/Ti me EXCISION, MASS, NECK Hidradenitis 07/06/2025 2:30 PM EST documented as of this encounter Procedures Procedure Name Priority Date/Time Associated Diagnosis Comments URINE CULTURE (NO STAIN) Today 02/11/2018 12:00 PM EDT Lower abdominal pain documented in this encounter Results * URINE CULTURE (NO STAIN) (02/11/2018 12:00 PM EDT) Culture No growth at 30 hours. 02/13/2018 7:50 AM EDT Genophen Urine 02/11/2018 12:0 0 PM EDT 02/11/2018 3:10 PM EDT us Yoly Royal MD MICROBIOLOGY - GENERAL ORDER JONES Final Result [facility] [address] [facility] , [place] [address] documented in this encounter Visit Diagnoses Diagnosis Lower abdominal pain Abdominal pain, other specified site Hidradenitis documented in this encounter Additional Health Concerns Infection Onset Date Last Indicated Resolved Time INFLUENZA 09/24/2017 09/24/2017 04/20/2018 7:40 AM EDT R/O COVID-19 06/26/2021 06/26/2021 06/26/2021 8:32 AM EST documented as of this encounter Care Teams Boarder Machine Relationship Specialty Start Date End Date Titus Charles MD PCP - General Family Medicine 11/14/14 Romain Portillo MD [address] [place] [address] Internal Medicine-Cardiovascular Disease 07/15/24 documented as of this encounter
--- OUTSIDE RECORDS SUMMARY | 2025-06-26 11:25 | XMS_ITS | Encounter Summary ---
Author Organization [place] [address] Care Team Providers Care Nondestructive Tester Name Role Phone Titus Charles MD Primary Care Provider [phone] Romain Portillo MD Unavailable [phone] Reason for Visit * Reason Onset Date Comments Other 06/12/2025 Encounter Details Date Type Department Care Team (Late st Contact Info) Description 06/12/2025 Telephone SEP Gen Surg [facility] [address] [facility] [address] [place] [address] Dayna Min MD [address] [facility] [address] [place], [place] [id number] Other Social History Tobacco Use Types Packs/Day Years [...] encounter Miscellaneous Notes * Telephone Encounter - Colette Mno CCMA - 06/12/2025 11:56 AM EDT patient rescheduled * Telephone Encounter - Gene Guzman - 06/12/2025 11:32 AM EDT Pt LVM wanting to reschedule her appt w/ Dr. Min from this morning she stated that she wants to reschedule ADAM and waiting on a call back documented in this encounter Plan of Treatment Upcoming Encounters Date Type Department Care Team (Latest Contact Info) Description 06/27/2025 1:30 PM EST Appointment [facility] PRE-ADMIT TESTING [facility] [place] [address] 07/06/2025 2:30 PM EST Hospital Encounter [facility] [address] [place] [address] Dayna Min MD [address] [place] [address] [address] [place] [address] 07/06/2025 2:30 PM EST - 07/06/2025 3:38 PM EST Surgery [facility] [address] [place] [address] Dayna Min MD [address] [place] [address] [address] [place] [address] EXCISION, MASS, NECK Scheduled Procedures Name Priority Associated Diagnoses Date/Ti me EXCISION, MASS, NECK Hidradenitis 07/06/2025 2:30 PM EST documented as of this encounter Visit Diagnoses Not on filedocumented in this encounter Care Teams Nondestructive Tester Relationship Specialty Start Date End Date Titus Charles MD PCP - General Family Medicine 11/14/14 Romain Portillo MD [address] [place] [address] Internal Medicine-Cardiovascular Disease 07/15/24 documented as of this encounter
--- OUTSIDE RECORDS SUMMARY | 2025-06-26 11:25 | XMS_ITS | Encounter Summary ---
Author Organization [place] [address] Care Team Providers Care Sec Accountant Name Role Phone Titus Charles MD Primary Care Provider [phone] Romain Portillo MD Unavailable Reason for Visit * Reason Onset Date Comments Surgery 06/20/2025 Encounter Details Date Type Department Care Team (Late st Contact Info) Description 06/20/2025 Telephone SEP Gen Surg [facility] [address] [facility] [address] [place] [address] Anabela Barrios, Clerical Staff Surgery Social History Tobacco Use Types Packs/Day Years [...] - Anabela Barrios, Clerical Staff - 06/20/2025 10:39 AM EST Surgery Information Date: 07/06/25 Arrival time: 1230pm Approximate surgery time: 230pm Location: [place] [address] Pause Ozempic 7 days prior. No food after midnight. You may have certain clear liquids up to 2 hours prior to arrival time; Water or Gatorade/ Powerade, Black coffee, or tea (no cream or sugar) Solar Project Engineer It is important to have a Solar Project Engineer, someone who is 18 years or older, to accompany you and remain in the facility for the duration of your surgery. This person should be available for the SurgeryTeam to communicate with before, during and after your surgery. Because you are receiving anesthesia, someone is needed to drive you home and remain with you for at least 24 hours after surgery to make sure you are safe during that time. Pre testing department through the hospital will call and go over medications, and medical history. If you have any questions or concerns, please send me a message through [employer] or call the office at [phone]. Thanks! Ashley * Telephone Encounter - Anabela Barrios, Clerical Staff - 06/20/2025 10:29 AM EST Order Questions Question Answer Comment Admission Class Outpatient Clearance Needed Prior to Surgery None ERAS No Prep None Length of time needed if different from standard: standard Positioning Other (use comments) Pre-op appointment with: None Stoma marking/ Ostomy teaching No Surgery: excision posterior neck mass Anesthesia: Choice Location: Choice Schedule procedure within: ADAM to 1 week -No latex allergy -No anticoagulant -Ozempic documented in this encounter Plan of Treatment Upcoming Encounters Date Type Department Care Team (Latest Contact Info) Description 06/27/2025 1:30 PM EST Appointment [facility] PRE-ADMIT TESTING [facility] [place] [address] 07/06/2025 2:30 PM EST Hospital Encounter [facility] [address] [place] [address] Dayna Min MD [address] [facility] [place] [address] 07/06/2025 2:30 PM EST - 07/06/2025 3:38 PM EST Surgery [facility] [address] [place] [address] Dayna Min MD [address] [facility] [address] [place] [address] EXCISION, MASS, NECK Scheduled Orders Name Type Priority Associated Diagnoses Orde r Schedule SURGICAL/PROCEDURE CASE REQUEST Procedures Routine Hidradenitis Ordered: 06/20/2025 Scheduled Procedures Name Priority Associated Diagnoses Date/Ti me EXCISION, MASS, NECK Hidradenitis 07/06/2025 2:30 PM EST documented as of this encounter Visit Diagnoses Diagnosis Hidradenitis- Primary Hidradenitis- Primary Hidradenitis documented in this encounter Care Teams Sec Accountant Relationship Specialty Start Date End Date Titus Charles MD PCP - General Family Medicine 11/14/14 Romain Portillo MD [address] [place] [address] Internal Medicine-Cardiovascular Disease 07/15/24 documented as of this encounter
--- OUTSIDE RECORDS SUMMARY | 2025-06-26 11:25 | XMS_ITS | Clinical Summary ---
Author Organization [facility] Address [address] [place] [address] Phone Care Team Providers Care Game Designer Name Role Phone Titus Charles MD Primary Care Provider [phone] Romain Portillo MD Unavailable [phone] Allergies Active Allergy Reactions Criticality Noted Date Comments Amoxicillin 11/08/2014 Brompheniramine Hives High 11/08/2014 Cephalosporins Anaphylaxis High 07/27/2017 Pt states if she takes them, it will require hospitalization. Chloral Hydrate Other (See Comments) 11/08/2014 Lethargy Cinnamon Itching 09/23/2011 Clarithromycin Hives High 10/22/2008 Codeine Hives High 11/08/2014 Eucalyptus Oil-Menthol Hives,Other (See Comments) High 11/08/2014 Respiratory distress Doxycycline Hives High 11/08/2014 Qhyfuhqtb-L-Lcitlej-Selen -Brom Swelling High 11/02/2009 Honey (breathing distress, hives), wheat (rash/hives), prunes (hives), raisins (hives), plums (hives), peas (breathing distress), Oats (breathing distress/hives) Green Beans [ breathing distress] cabbage [ itching Walnuts [breathing difficulty] Jalapeno's [ choking breathing difficulty Gabapentin Other (See Comments) High 08/29/2024 Chest pain, lethargy,stroke like symptoms,was hospitalized 3 days at from taking one gabapentin Honey Shortness Of Breath High 11/08/2014 Ibuprofen Anaphylaxis High 04/27/2017 Throat swelling Lactose Intolerance (Lactase) Diarrhea 04/18/2010 No longer intolerant Furosemide Nausea Only 11/14/2014 Latex Swelling High 11/08/2014 Metformin Shortness Of Breath 05/03/2024 Chest pains and hard to breathe Methylprednisolone Shortness Of Breath 03/24/2019 Omeprazole Magnesium Shortness Of Breath 12/26/2014 Omnipen 11/08/2014 Penicillins Anaphylaxis High 07/27/2017 Oxycodone-Acetaminophen Shortness Of Breath 04/28/2020 Had nausea, sob, chest pain, anxiety feeling after this med, had been taking oxycodone and apap separately prior to this med Pyphytvcdrzfu-Km-Yivgfwvj ophen Hives High 11/08/2014 Versed High 11/08/2014 Hydroxyzine Pamoate Hives High 11/08/2014 Wheat Shortness Of Breath 09/23/2011 Ondansetron Hcl (Pf) 04/27/2017 Medications diphenhydrAMINE (BENADRYL) 25 mg Oral Capsule Take 25 mg by mouth as needed for Itching. Active Vitamin B-12 1000 mcg/mL Inj Inject 1,000 mcg as directed every 14 days. Active albuterol (PROVENTIL HFA;VENTOLIN HFA) 90 mcg/actuation Inhl HFA Aerosol Inhaler With your spacer, take #2-#5 puffs every 4 hours as needed for cough or shortness of breath 1 Inhaler 10/09/19 17 Active topiramate (TOPAMAX) 50 mg Oral Tablet Take 1/2 tab nightly for 1 week then 1 tab nightly for 1 week 11 Tab 08/18/19 19 Active budesonide/formo terol fumarate (SYMBICORT INHL) Inhale into the lungs. Active FAMOTIDINE ORAL Take 40 mg by mouth daily as needed (heartburn). Active cholecalciferol, vitamin D3, 25 mcg (1,000 unit) Oral Tablet Take 1 Tab by mouth daily. Active nystatin (MYCOSTATIN) Top Ointment 04/21/20 24 Active sulfamethoxazole -trimethoprim (BACTRIM DS) 800-160 mg Oral Tablet 04/21/20 24 Active empagliflozin (JARDIANCE) 25 mg Oral Tablet Take 25 mg by mouth daily. Active ketorolac (TORADOL) 10 mg Oral Tablet Take 10 mg by mouth every 6 hours as needed (migraines). Active ferrous sulfate 325 mg (65 mg iron) Oral Tablet Take 325 mg by mouth 2 times daily. Active spironolactone (ALDACTONE) 25 mg Oral Tablet Take 1 Tablet by mouth daily. 90 Tablet 3 05/03/20 Active Additional Information Patient not taking.Reason: Pt electing to not take the medication, Reported on 06/16/2025 semaglutide (OZEMPIC) 2 mg/dose (8 mg/3 mL) SubQ Pen Injector Subcutaneous (Inject under the skin) 2 mg once a week. 05/03/20 Active torsemide (DEMADEX) 20 mg Oral Tablet Take 1 Tablet by mouth daily. 05/03/20 Active lactobacillus rhamnosus, GG, (CULTURELLE) 10 billion cell Oral Capsule Take 1 Capsule by mouth daily. Active promethazine (PHENERGAN) 25 mg Oral Tablet Take 25 mg by mouth every 6 hours as needed for Nausea. Active zomqvxq-RT-VZ-ac etaminophen-GG 6.25-5-325 mg/15 mL (nt) Oral Liquid, Sequential Take 30 mL by mouth nightly. Active Oxygen and Equipment MISCELLANEOU 1 Device by MISCELLANEOUS route once. O2 at 4L at HS and prn Active Active Problems Problem Noted Date Diagnosed Date At high risk for breast cancer 05/27/2024 Dermoid cyst of neck 04/26/2024 Assessment & Plan (08/08/2024 7:15 PM EST): Orders: BETA SURGERY COMMUNICATION ORDER Hidradenitis, acne conglobat a, dissecting cellulitis, and pilonidal sinus 04/26/2024 Hidradenitis 04/26/2024 Assessment & Plan (06/20/2025 4:06 PM EST): Orders: AMB REFERRAL TO DERMATOLOGY BETA SURGERY COMMUNICATION ORDER Morbid obesity with BMI of 60.0-69.9, adult 03/2019 Exacerbation of asthma 09/26/2017 Assessment & Plan (09/26/2017 11:08 PM EST): Hx of Asthma, only home medication is rescue inhaler albuterol Last exacerbation per patient was 1 year ago, last time steroids used were 4 months ago. Tries to control asthma by staying away from irritants, pets, strong fumes, smoke Xray Chest, Xray neck normal, UTD with all childhood immunizations SIRS 1/, no signs of infection to indicate the need for Abx at this time -VS/Pulse ox -Resp Eval and Treat -Albuterol/Duoneb -Prednisone 60mg BID Influenza 09/26/2017 Assessment & Plan (09/26/2017 10:41 PM EST): Influenza B Ag positive 09/24/17 -Tamiflu -Resp eval and treat -Breathing Treatments Abnormal uterine bleeding (AUB) 06/01/2016 Overview (06/01/2016): - started on OCPs 06/01/16 - U/S from October normal - pt will f/u as outpt for further management Assessment & Plan (09/26/2017 10:47 PM EST): Hx of AUB, and heavy periods Being controlled now with Depo Provera IM, last injection August Per patient going to follow up for her AUB at No heavy bleeding currently Not on OCP's Anemia 06/01/2016 Assessment & Plan (09/26/2017 10:49 PM EST): Hx of AUB, and heavy periods Being controlled now with Depo Provera IM, last injection August Per patient going to follow up for her AUB at No heavy bleeding currently Microcytic anemia -Iron Studies/TIBC/Ferritin -CBC Morbid obesity 06/01/2016 Resolved Problems Problem Noted Date Diagnosed Date Resolved Date Syncope and collapse 06/01/2016 018 Encounters Date Type Department Care Team Description 06/20/2025 Telephone SEP Gen Surg [facility] [address] [facility] [address] [place] [address] Anabela Barrios, Clerical Staff Surgery 06/19/2025 Telephone SEP Gen Surg [facility] [address] [facility] [address] [place] [address] Luann Woody MA Other (FYI) 06/16/2025 10:10 AM EDT Office Visit SEP Gen Surgery [facility] [address] [place] [address] Dayna Min MD Hidradenitis (Primary Dx) 06/12/2025 Telephone SEP Gen Surg EDG [address] [place] [address] Dayna Min MD Other from Last 3 Months Immunizations Immunization Administration Dates Next Due Tdap 04/13/2024 Surgical History Surgery Date Site/Laterality Comments TONSILLECTOMY AND ADENOIDECTOMY 08/17/1999 - 08/16/2000 UPPER GASTROINTESTINAL ENDOSCOPY 08/17/2009 - 08/16/2010 WRIST ARTHROSCOPY 08/17/2011 - 08/16/2012 DILATION AND CURETTAGE OF UTERUS hysteroscopy x2 2016, 2020 WISDOM TOOTH EXTRACTION Medical History Medical History Date Comments Asthma Esophageal reflux Splenomegaly Allergic rhinitis Hypoglycemic syndrome High cholesterol Anemia Chronic headache PCOS (polycystic ovarian syndrome) 2018 Elevated blood sugar Sleep apnea no cpap, uses O2 at night and prn Ingrown toenail Collapsed lung Dx at [facility], pt uns ure of which lung CHF (congestive heart failure) (HCC) 05/10/2024 current workup for CHF Diabetes mellitus (HCC) Anesthesia complication difficul t to wake up, difficult intubation Difficult intubation COPD (chronic obstructive pu lmonary disease) (HCC) Shortness of breath Angina pectoris Family History Medical History Relation Name Comments Asthma Father melanoma Father after age 35 Diabetes Maternal Grandmother Type II Heart Disease Maternal Grandmother NE High Blood Pressure Maternal Grandmother Migraines Maternal Grandmother Sleep Apnea Maternal Grandmother Thyroid Disease Maternal Grandmother hypo thyroid Anemia Mother Brain Cancer Mother SOCIAL DIRECTOR at age 16-r emission Breast Cancer Mother Bilateral. Uns ure of age. Asthma Paternal Grandmother Cancer Paternal Grandmother skin. Heart Abnormality Paternal Grandmother High Blood Pressure Paternal Grandmother Irritable Bowel Syndrome Paternal Grandmother Migraines Paternal Grandmother Seizures Paternal Grandmother Uterine Cancer Paternal Grandmother Asthma Sister Cancer Sister skin Anesth Problems Neg Hx Relation Name Status Comments Father skin cancers Half-Brother Alive Maternal Aunt 1 Alive Maternal Aunt 2 Alive Maternal Grandfather Maternal Grandmother Mother Other 1 Alive Other 2 Alive skin cancers Paternal Grandfather No info rmation. Mental disorders. Rapist and no info. Paternal Grandmother Sister not in contact. unsure if had skin cancer. Social History Tobacco Use Types Packs/Day Years [...] Not on file Not on heather e Obstetrics History Para Term AB IAB SAB Ectopic Multiple Livin g Live Births 0 0 0 0 0 0 0 0 0 0 0 Last Filed Vital Signs Vital Sign Reading Time Taken Comments Blood Pressure 126/66 06/16/2025 10:08 AM EDT Pulse 100 06/16/2025 10:08 AM EDT Temperature 36.8 C (98.3 F) 06/16/2025 10:08 AM EDT Respiratory Rate 18 06/16/2025 10:0 8 AM EDT Oxygen Saturation 96% 08/30/2024 3:40 PM EST Inhaled Oxygen Concentration - - Weight 201.1 kg (443 lb 6.4 oz) 025 10:08 AM EDT Height 160 cm (5' 3 ) 06/16/2025 10:08 AM EDT Body Mass Index 78.54 06/16/2025 10:08 AM EDT Plan of Treatment Upcoming Encounters Date Type Department Care Team (Latest Contact Info) Description 06/27/2025 1:30 PM EST Appointment EDG PRE-ADMIT TESTING [address] [facility] [place] [address] 07/06/2025 2:30 PM EST Hospital Encounter [facility] [address] [place] [address] Dayna Min MD [address] [place] [address] 07/06/2025 2:30 PM EST - 07/06/2025 3:38 PM EST Surgery [facility] [address] [place] [address] Dayna Min MD [address] [place] [address] [address] [place] [address] EXCISION, MASS, NECK Scheduled Procedures Name Priority Associated Diagnoses Date/Ti me EXCISION, MASS, NECK Hidradenitis 07/06/2025 2:30 PM EST Health Maintenance Due Date Last Done Comments Annual Wellness Exam 1999 Diabetic Eye Exam 2014 Kidney Health: uACR 2014 Hepatitis B Vaccine (1 of 3 - 19+ 3-dose series) 2015 Pneumococcal Vaccine 0-49 (1 of 2 - PCV) 2015 Lipids 08/22/2023 08/22/2022, 12/15, 09/27/2017, Additional history exists Cervical Cancer Screening 01/24/2024 Pap Smear 01/24/2024 01/23/2021, 01/23/2021 Hemoglobin A1c 11/07/2024 05/10/2024, /0 01/2023, 08/22/2022, Additional history exists COVID-19 Vaccine ( - season) 2025 Influenza Vaccine (#1) 2025 09/02/2006 Kidney Health: eGFR 05/10/2025 05/10/2024, 04/13/2024, 03/03/2024, Additional history exists DTaP/TDaP/Td (4 - Td or Tdap) 04/13/2034 04/13/2024, 08/21/2009, 02/12/2007 Chlamydia Screening Discontinued 08/01/2017, 07/03/2016, 02/16/2015 Meningococcal B Vaccine Aged Out No l onger eligible based on patient's age to complete this topic Medical Devices Implanted Type Area Lumber Scaler Device Identifier Shelf Expiration Date Model / Serial / Lot Iud Procedures Procedure Name Priority Date/Time Associated Diagnosis Comments BASIC METABOLIC PANEL Routine 05/10/2024 9:19 AM EDT Peripheral edema Dyspnea, unspecified type HEMOGLOBIN A1C Add-On 05/10/2024 9:19 AM EDT Preop testing Diabetes mellitus due to underlying condition with hyperosmolarity without coma, without long-term current use of insulin (HCC) LIPID PANEL REFLEX Routine 09/27/2017 6: 13 AM EST CHLAMYDIA/GC BY TMA Routine 08/01/2017 3:38 AM EST from Last 3 Months or Most Recently Relevant to Health Maintenance Results * (ABNORMAL) HEMOGLOBIN A1C (05/10/2024 9:19 AM EDT) Hgb A1C 6.6(H) 4.2 - 5.6 % 05/10/2024 3:16 PM EDT [facility] [employer] Est. Avg Glucose 143 mg/dL 05/10/2024 3:16 PM EDT [facility] [employer] Blood VENOUS BLOOD / Unknown Venipuncture / Unknown 05/10/2024 9:19 AM EDT 05/10/2024 9:35 AM EDT Narrative [facility] - 05/10/2024 3:16 PM EDT REFERENCE RANGE: Normal: 4.0-5.6% Pre-diabetes: 5.7-6.4% Provisional diagnosis of diabetes: >6.4% Hgb F>10% and anything which shortens red cell survival, such as hemolytic anemia, or unstable hemoglobin variants such as HbSS, HbSC, or HbCC, will lower the HbA1c value associated with a given level of glycemic control. Lindsey López APRN CHEMISTRY ORDERABLES Final Re sult [facility] [address] [facility] [place] [address] * (ABNORMAL) BASIC METABOLIC PANEL (05/10/2024 9:19 AM EDT) Sodium 139 136 - 145 mmol/L 05/10/2024 5:30 PM EDT [facility] Potassium 4.0 3.5 - 5.0 mmol/L 05/10/2024 5:30 PM EDT [facility] Chloride 101 98 - 107 mmol/L 05/10/2024 5:30 PM EDT [facility] Total CO2 24 22 - 29 mmol/L 05/10/2024 5:30 PM EDT [facility] Anion Gap 14 7 - 16 mmol/L 05/10/2024 5:30 PM EDT [facility] Calcium 9.4 8.6 - 10.4 mg/dL 05/10/2024 5:30 PM EDT [facility] Glucose Lvl 146(H) 70 - 99 mg/dL 05/10/2024 5:30 PM EDT [facility] BUN 12 6 - 20 mg/dL 05/10/2024 5:30 PM EDT [facility] Creatinine 0.63 0.51 - 1.30 mg/dL 05/10/2024 5:30 PM EDT [facility] eGFR (CKD-EPIcr 2020) 123 >=60 mL/min/1.7 3 m2 05/10/2024 5:30 PM EDT [facility] Comment:Estimated GFR was ca lculated using the CKD-EPIcr (2020) equation refit without race. The equation is recommended by the National Kidney Foundation - [place] of Nephrology Task Force. Blood VENOUS BLOOD / Unknown Venipuncture / Unknown 05/10/2024 9:19 AM EDT 05/10/2024 9:35 AM EDT Lelo Alegre NP CHEMISTRY ORDERABLES Fin al Result [facility] [address] [facility] , [place] [address] [facility] [address] [place], [place] [id number] * (ABNORMAL) LIPID PANEL REFLEX (09/27/2017 6:13 AM EST) Cholesterol 137 <=200 mg/dL 09/27/2017 7:13 AM EST [facility] Comment: < 200 Desirable 200 - 239 Borderline High >= 240 High Triglyceride 108 <=150 mg/dL 09/27/2017 7:13 AM EST [facility] Comment: < 150 Normal 150 - 199 Borderline High 200 - 499 High >= 500 Very High HDL 32(L) >=40 mg/dL 09/27/2017 7:13 AM EST [facility] Comment: > 60 Optimal 40 - 60 Acceptable < 40 Low LDL Calculated 83 <=100 mg/dL 09/27/2017 7:13 AM EST [facility] Non-HDL-C Calculated 105 <=129 mg/dL 09/27/2017 7:13 AM EST [facility] Comment: <130 Desirable 130-159 Above Desirable 160-189 Borderline High 190-219 High >= 220 Very High Blood VENOUS BLOOD / Unknown Venipuncture / Unknown 09/27/2017 6:13 AM EST 09/27/2017 6:31 AM EST us Krystal Elias MD CHEMISTRY ORDERABLES Final Resul t [facility] [address] [place] [address] * CHLAMYDIA/GC BY TMA (08/01/2017 3:38 AM EST) Chlamydia trachomatis Not Detected Not Detected 08/01/2017 10:25 AM EST [facility] Neisseria gonorrhoeae Not Detected Not Detected 08/01/2017 10:25 AM EST [facility] Swab SPECIMEN FROM UTERINE CERVIX / Unknown 08/01/2017 3:38 AM EST 08/01/2017 3:41 AM EST Narrative [facility] - 08/01/2017 10:25 AM EST Testing methodology is research group director mediated amplification (TMA) using the Aptima Combo 2 assay from [employer] [facility]. A negative result does not completely rule out a Chlamydia trachomatis or Neisseria gonorrhoeae infection due to potential inhibitors or levels present below the limit of detection by this assay. Results are dependent on proper collection and transport of specimen. This test is indicated for medical purposes only and should not be used for legal or forensic purposes. The performance characteristics of this test were validated by [facility] laboratory. This assay is FDA cleared to test the following specimens: clinician-collected endocervical, vaginal and male urethral swab specimens, patient collected vaginal specimens within a clinic setting, Thin Prep Specimens in PreservCyt Solution, and first-stream, unpreserved male urine specimens. Testing on female urine is not FDA approved by this methodology, but has been developed and validated by the [facility] laboratory. Detailed methodology is available upon request. us Purnima Padilla DO MICROBIOLOGY - GENERAL ORDERAB LES Final Result [facility] [address] [place] [address] from Last 3 Months or Most Recently Relevant to Health Maintenance Insurance [address] MDR [address] MDR [address] MDR 2030 [facility] [address] [place] [address] Advance Directives For more information, please contact: [phone] * Full Code (Latest Code Status on File) Date Activated Date Inactivated Comments 09/26/2017 11:40 PM 09/27/2017 4:27 PM * Full Code Date Activated Date Inactivated Comments 06/01/2016 10:37 AM 06/02/2016 6:33 PM Care Teams Game Designer Relationship Specialty Start Date End Date Titus Charles MD PCP - General Family Medicine 11/14/14 Romain Portillo MD [address] [id number] Internal Medicine-Cardiovascular Disease 07/15/24
== END 2025-06-23 23:59 ==
LOC: LAB.DROPOF 06-26 11:10
PROVIDERS: PCP Family Medicine; Visit Provider Family Medicine
DX: Z11.59 Encounter for screening for other viral diseases (principal); E11.9 Type 2 diabetes mellitus without complications
CPT/HCPCS: 80053; 80061; 83540; 84443; 85025; 86803; 87389